=== PATIENT | female | born 1995 | race Two or more races ===

== ENCOUNTER 2017-01-29 15:52 | Outpatient (CLI) | payer SELFPAY ==
[~2017-01-29] VITALS: Ht 152.4 cm; Wt 54.1 kg
[2017-01-29 16:15] VITALS: BP 123/55
[2017-01-29 16:50] LABS: AMNI OBC PASS; AMNISURE NEGATIVE (NEGATIVE)
== END 2017-01-29 17:10 | disposition home or self-care (01) ==
LOC: LDOP 15:52
PROVIDERS: ATTEND Student in an Organized Health Care Education/Training Program
DX: O42.913 Preterm premature rupture of membranes, unspecified as to length of time between rupture and onset of labor, third trimester (principal); O26.893 Other specified pregnancy related conditions, third trimester; M25.559 Pain in unspecified hip; Z3A.29 29 weeks gestation of pregnancy
CPT/HCPCS: 59025; 76815; 84112; 99201; G0463